=== PATIENT | female | born 1975 | race Caucasian/White ===

== ENCOUNTER 2022-06-18 10:33 | Emergency (ER) | payer OTHER, SELFPAY ==
[2022-06-18 10:46] VITALS: BP 155/108; PULSE 78; RESP 18; TEMP 36.6; O2SAT 99; BMI 44.3
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
--- NOTE | 2022-06-18 11:20 | CRLHL7_ITS ---
For Patients: As a result of the Century Cures Act, medical imaging exams and procedure reports are released immediately into your electronic medical record. You may view this report before your referring provider. If you have questions, please contact your health care provider. Indication: DIZZY, BALANCE PROBLEMS Technique: CT of the head without contrast. Coronal and sagittal reformats. Bone and soft tissue windows. Comparison: No prior studies available for comparison at this institution. Findings: No acute intracranial hemorrhage or extra-axial collection. No evidence of acute cortical infarction. No mass effect or midline shift. Normal cerebral volume. The ventricles are normal in size, shape and contour. There is normal pennington and white matter differentiation. The orbital contents are normal. No calvarial fractures. No lytic or sclerotic osseous lesions within the calvarium or skull base. Scalp and other imaged soft tissue structures are normal. Mastoid air cells are clear. Paranasal sinuses are well aerated. Partially empty morphology of the sella. Leftward deviation of the nasal septum. Impression: 1. No acute intracranial abnormality. 2. Partially empty configuration of the sella. This may represent a normal anatomic variant but can be seen in association with idiopathic intracranial hypertension in an appropriate clinical setting. Please note that all CT scans at this facility use dose modulation, iterative reconstruction, and/or weight-based dosing when appropriate to reduce radiation dose to as low as reasonably achievable. Dictated by Ghulam Bell MD @ 06/18/2022 1:04:31 PM (Electronically Signed)
--- OUTSIDE RECORDS SUMMARY | 2022-06-18 11:33 | XMS_ITS | Clinical Summary ---
:1975 Author [facility] [place] [address] Care Team Providers Name Role Phone FaustinoshericalebFinesseOriana Dahle Unavailable Unavailable Natacha Zaragoza MD Primary Care Provider Allergies Active Allergy Reactions Severity Noted Date Comments Amoxicillin Hives 12/09/2019 Medications Medication Sig Dispensed Refills Start Date End Date Status ciprofloxacin-dexAMETH Place 4 Drops into 1 Bottle 0 02/27/20 21 Active asone (CIPRODEX) otic both ears 2 times suspensionIndications: daily. Acute swimmer's ear of both sides tiZANidine (ZANAFLEX) Take 1 Tablet (4 10 Tablet 0 06/19/2021 Active 4 mg mg) by mouth every tabletIndications: 6 hours if needed Chronic midline low for Muscle Spasm. back pain with left-sided sciatica Active Problems Problem Noted Date Morbid obesity with BMI of 40.0-44.9, adult 02/26/2021 Hx of unilateral nephrectomy 01/04/2015 Renal mass 08/26/2014 Resolved Problems Problem Noted Date Resolved Date No significant past medical history 10/10/2011 02/0 10/2011 Acute sinusitis, unspecified 10/10/2011 08/26/2014 Encounters Date Type Specialty Care Team Description 06/18/2022 Travel 06/18/2022 Nurse Triage Natacha Zaragoza MD Dizzy from Last 3 Months Immunizations Name Administration Dates Next Due COVID-19 vaccine ([employer] 30mcg/0.3mL) PF, 1, 01/08/2021 MDV Tdap 01/25/2010, 10/10/2009 Family History Medical History Relation Name Comments Diabetes Maternal Grandmother Hypertension Maternal Grandmother Stroke Maternal Grandmother Good Health Mother Cancer-colon Other maternal great u ncle Cancer-breast No Family History Relation Name Status Comments Maternal Grandmother Mother Alive Other Social History Tobacco Use Types Packs/Day Years Used Date Never Smoker Smokeless Tobacco: Never Used Tobacco Cessation: Counseling Given: Yes Alcohol Use Standard Drinks/Week Comments Yes 0 (1 standard drink = 0.6 oz pure alcoho l) socially Alcohol Habits Answer Date Recorded How often do you have a drink containing alcohol? Monthly or less 12/09/2019 How many drinks containing alcohol do you have on a 1 or 2 12/09/2019 typical day when you are drinking? How often do you have six or more drinks on one Not asked occasion? Comment: socially 08/22/2014 Sex Assigned at Date Recorded Not on file COVID-19 Exposure Response Date Recorded In the last 10 days, have you been in contact with No / Unsu re 06/18/2022 9:42 AM CDT someone who was confirmed or suspected to have Coronavirus/COVID-19? Obstetrics History Para Term AB IAB SAB Ectopic Multiple Living Live Births 2 2 0 0 0 0 0 0 0 2 Date Outcome GA Total Labor/2nd/3rd Weight Sex Delivery Anes PTL Radha A 1 A5 Name Clin Labor Para Para Last Filed Vital Signs Vital Sign Reading Time Taken Comments Blood Pressure 144/89 06/19/2021 3:35 PM CDT Pulse 80 06/19/2021 3:35 PM CDT Temperature 36.7 ??C (98 ??F) 06/19/2021 3:35 PM CDT Respiratory Rate 18 12/22/2020 7:55 AM CDT Oxygen Saturation 100% 06/19/2021 3:35 PM CDT Inhaled Oxygen Concentration - - Weight 119.2 kg (262 lb 12.8 oz) 06/19/2021 3:35 PM CDT Height 157.5 cm (5' 2) 06/19/2021 3:35 PM CDT Body Mass Index 48.07 06/19/2021 3:35 PM CDT Plan of Treatment Upcoming Encounters Date Type Specialty Care Team Description 06/19/2022 Office Visit Kim Chan PA [address] [place], [place] [phone] (Wo rk) Health Maintenance Due Date Last Done Comments Hepatitis C screening for age 0602/23/1992 18-79 Colonoscopy through age 75 2019 Lipids for age 45-75 2019 Mammogram for age 45-75 2019 Tetanus booster 01/26/2020 01/25/2010, 10/10/2009, 10/10/2009 COVID-19 vaccine series (3 - 03/26/2021 01/29/2021, 021 Booster for Pfizer series) Depression screening for age 12+ 05/26/2021 05/26/2020, , 11/13/2016 Pap test for age 21-65 11/13/2021 11/13/2016, 11/13/2016, 06/21/2014, Additional history exists Influenza for age 9-49 05/09/2022 BMI (ht and wt on same day) for 06/19/2022 06/19/2021, 02/07, age 18+ 12/19/2020, Additional history exists Tdap Completed 01/25/2010, 10/10/2009 Results Not on filefrom Last 3 Months Insurance Payer Benefit Plan / Subscriber ID Effective Dates Phone Addre ss Type Group [employer] [id number] 2012-Present [address] [place] [address] Care Teams Transportation Officer Relationship Specialty Start Date End Date Natacha Zaragoza MD PCP - General Family Practice 06/13/17 [address] [place] [address] Oriana Mckeon 12/02/06
[2022-06-18] MEDS: 0.9 % SODIUM CHLORIDE 1000 ml 1,000 ML IV (11:42)
[2022-06-18] MEDS: diphenhydrAMINE 50 MG/ML inj 25 MG IVP (11:43)
[2022-06-18 11:55] LABS: Basophils Absolute Auto 0.05 K/uL (0.00-0.30); Basophils Percent Auto 0.7 % (0.0-3.0); Eosinophils Absolute Auto 0.11 K/uL (0.00-0.50); Eosinophils Percent Auto 1.5 % (0.0-7.0); Hematocrit 42.7 % (33.0-51.0); Hemoglobin* 13.7 gm/dL (12.0-16.0); Immature Granulocytes Abs Auto 0.01 K/uL (0.00-0.30); Lymphocytes Absolute Auto 1.89 K/uL (0.90-2.90); Lymphocytes Percent Auto 25.8 % (20-44); Mean Corpuscular HGB Conc 32 gm/dL (32-36); Mean Corpuscular Hemoglobin 27 pg (26-34); Mean Corpuscular Volume 83 fL (80-100); Monocytes Percent Auto 5.5 % (0.0-11.0); Neutrophils Absolute Auto 4.87 K/uL (1.7-7.0); Neutrophils Percent Auto 66.4 % (42.0-72.0); Platelet Count* 305 K/uL (140-440); Red Blood Count 5.16 m/uL (4.00-5.20); White Blood Count* 7.33 K/uL (4.50-11.00)
[2022-06-18 12:02] LABS: Slide Review Reflex No
[2022-06-18 12:06] LABS: Albumin* 4.8 g/dL (3.3-5.0); Chloride* 101 mmol/L (96-114); Potassium* 4.1 mmol/L (3.6-5.1); Sodium* 135 mmol/L (135-149)
[2022-06-18 12:08] LABS: Creatinine* 0.9 mg/dL (0.5-1.5); Est. Creatinine Clearance* 63.24; Estimated Glomerular Filt Rate 79 ml/min
[2022-06-18 12:09] LABS: Alanine Aminotransferase* 23 U/L (4-35); Alkaline Phosphatase* 81 U/L (40-150); Aspartate Amino Transferase* 21 U/L (12-35); Bilirubin Total* 0.4 mg/dL (0.1-1.5); Blood Urea Nitrogen* 13 mg/dL (5-24); Carbon Dioxide* 25 mmol/L (20-32); Glucose* 92 mg/dL (60-115)
[2022-06-18 12:10] LABS: Calcium* 9.6 mg/dL (8.4-10.6)
[2022-06-18 12:25] LABS: Appearance Urine Clear (Clear); Bilirubin Urine Negative (Negative); Blood Urine Negative (Negative); Color Urine Yellow (Yellow); Glucose Urine Negative (Negative); Ketones Urine Negative (Negative); Leukocyte Esterase Urine Negative (Negative); Nitrite Urine Negative (Negative); Protein Urine Negative (Negative); Specific Gravity Urine <= 1.005 (1.000-1.030); Urobilinogen Urine 0.2 (0.2-1.0); pH Urine 5.5 (5.0-8.5)
[2022-06-18 12:36] LABS: Bacteria Urine Moderate; Squamous Epithelial Cell Urine Few (None-Few)
[2022-06-18] MEDS: LORazepam 2 MG/ML inj 0.5 MG IVP (13:02)
[2022-06-18 13:07] VITALS: PULSE 70; RESP 18; O2SAT 98
[2022-06-18 14:30] VITALS: BP 123/55; PULSE 81; RESP 18; O2SAT 99
== END 2022-06-18 14:41 | disposition home or self-care (01) ==
PROVIDERS: Emergency Provider Family Medicine
DX: H81.10 Benign paroxysmal vertigo, unspecified ear (principal); R31.9 Hematuria, unspecified
CPT/HCPCS: 36415; 70450; 80053; 81001; 85025; 86140; 87086; 96374; 96375; 99284; 99285; J1200; J2060; J7030

== ENCOUNTER 2022-07-09 11:30 | Outpatient (RCR) | payer OTHER, SELFPAY | END 2022-09-26 08:36 | disposition home or self-care (01) | PROVIDERS: Visit Provider Student in an Organized Health Care Education/Training Program | DX: R42 Dizziness and giddiness (principal); Z51.89 Encounter for other specified aftercare | CPT/HCPCS: 95992; 97161 ==

== ENCOUNTER 2023-02-21 13:55 | Outpatient (CLI) | payer OTHER, SELFPAY | END 2023-02-21 13:56 | disposition home or self-care (01) | PROVIDERS: Visit Provider Nurse Practitioner Family | DX: R03.0 Elevated blood-pressure reading, without diagnosis of hypertension (principal); L08.9 Local infection of the skin and subcutaneous tissue, unspecified | CPT/HCPCS: 84443; 86617 ==

== ENCOUNTER 2023-04-30 15:49 | Emergency (ER) | payer OTHER, SELFPAY ==
[2023-04-30 15:52] VITALS: BP 164/83; PULSE 100; RESP 18; TEMP 36.4; O2SAT 100; BMI 47.8
--- NOTE | 2023-04-30 16:07 | ED_ITS ---
HPI - General Adult General Time Seen by Provider: 16:07 Date Seen: 04/30/23 Chief complaint: Urogenital Problems, Female Stated complaint: Possible UTI/kidney infection Time Seen by Provider: 04/30/23 15:50 Source: patient and RN notes reviewed Mode of arrival: ambulatory Limitations: no limitations History of Present Illness HPI narrative: Patient is a 48-year-old female coming in with lower pelvic pain and pain into her left flank. She has no history of kidney stone disease. She has had a right nephrectomy for benign tumor reportedly. She started not feeling well on Friday, just achy, no specific symptoms. Yesterday she did have a little mucousy bloody vaginal discharge which did go away. She has had a remote history of endometrial ablation and no subsequent periods. She has not been seen for any preventative cares since [facility]. She has had no fevers. The last couple days she has had increased stools that have been soft but not bloody or diarrheal. She felt her urine was cloudy this morning almost a tingly neurologic type sensation when she urinated. She is went to couple times since then without any abnormality. She is wondering if possibly she could have a kidney infection or bladder infection. She has had some nausea but no vomiting. She has a lot of lower abdominal pressure and discomfort and it does radiate up into the left flank. Related Data Previous Rx's Medication Instructions Recorded cephalexin 500 mg tablet 500 mg PO TID #21 tabs 04/30/23 Allergies Allergy/AdvReac Type Severity Reaction Status Date / Time amoxicillin Allergy Mild Rash Verified 04/30/23 18:25 Review of Systems Status of ROS: Reports: 6 or more systems reviewed and unremarkable except as noted in History and below [facility] History Skin infection ?L08.9 - Local infection of the skin and subcutaneous tissue, unspecified (ICD-10) Elevated blood pressure reading in office without diagnosis of hypertension ?R03.0 - Elevated blood-pressure reading, without diagnosis of hypertension (ICD-10) Ankle swelling ?M25.473 - Effusion, unspecified ankle (ICD-10) No significant past medical history Surgical History H/O adenoidectomy ?Z90.89 - Acquired absence of other organs (ICD-10) History of appendectomy ?Z90.49 - Acquired absence of other specified parts of digestive tract (ICD- 10) History of tonsillectomy ?Z90.89 - Acquired absence of other organs (ICD-10) Hx of kidney removal ?Z90.5 - Acquired absence of kidney (ICD-10) Social History Smoking Status: Never smoker How often do you have a drink containing alcohol: 2-4 times a month AUDIT-C Alcohol total score: 2 Non-prescribed substance use: denies use Exam Const: Vital Signs, click to edit/add: Vital Signs - 24 hr 04/30/23 15:52 04/30/23 18:29 Temperature 97.6 F 97.6 F Pulse Rate [Pulse Oximeter] 100 97 Respiratory Rate 18 16 Blood Pressure [Ri ght Upper Arm] 164/83 H 151/90 H Pulse Oximetry 100 98 Oxygen Delivery Me thod Room Air Room Air 48-year-old female is alert interactive no apparent distress. Sclera clear, conjugate gaze. Face atraumatic. Lungs are clear with good air entry, no wheezing or crackles. CV regular rate and rhythm no murmur. Abdomen is obese but soft, no significant abdominal tenderness on my examination. Body habitus precludes any sense of any organomegaly or masses. Certainly there is no rebound or guarding. Documenting provider has reviewed patient's vital signs: yes Course Course Hospital Course: Patient was unable to leave a urinalysis on arrival. Will place an IV, get appropriate lab work, give her some normal saline. Hopefully should be able to provide a urinalysis shortly. Will obtain pelvic ultrasound for the slight postmenopausal bleeding that happen. She understands that we may end up needing to proceed with CT imaging of her abdomen and would do so if necessary or recommended. She is sure that the bleeding and mucousy discharge was the vaginal, was just yesterday, none today. Will see what the pelvic ultrasound shows. Did review that we certainly do not want to miss any evidence of early uterine cancer. There certainly could be urinary issues such as UTI with ascending pyelonephritis, possible kidney stones. Bowel pathology is a possibility as well. Again, will consider CT imaging based on labs. She declines any need for any nausea or pain management at this time. Reevaluation(s) Time of Reevaluation #1: 18:11 Reevaluation #1: Reviewed elevated WBC, UA certainly supporting possible UTI with possible ascending symptoms given left flank pain. Will consider IV Rocephin after CT abdomen/pelvis done. However, with the increased soft stooling last couple of days, do think we also need to consider etiologies such as diverticulitis. Patient has never had colonoscopy. She agrees to proceed with CT imaging. Awaiting reading of pelvic US. Time of Reevaluation #2: 17:57 Reevaluation #2: Reviewed ultrasound report specifically with patient, brought the copy in. Also reviewed the CT report. Patient believes that they did find liver lesion her cyst when they were taking out her right kidney. Thus, she needs to just compare that prior records with the CT report. It is likely that this is benign but she should be aware and follow up to make sure nothing further should be done. Reassured her that her liver functions are normal tonight. IA do think that the bladder wall was maybe somewhat increased in thickness, symptoms seem to be concerning for complicated UTI with possibly ascending infection. We are going to complete the 1 g IV Rocephin and have her start on oral antibiotics tomorrow. Vital Signs Vital signs: Initial Vital Signs Temperature 97.6 F 04/30/23 15:52 Temperature Source Temporal Artery Scan 04/30/23 15:52 Pulse Rate 100 04/30/23 15:52 Respiratory Rate 18 04/30/23 15:52 Blood Pressure 164/83 H 04/30/23 15:52 Blood Pressure Mean 110 H 04/30/23 15:52 Blood Pressure Position Sitting 04/30/23 15:52 Pulse Oximetry 100 04/30/23 15:52 Oxygen Delivery Method Room Air 04/30/23 15:52 Vital Signs Temperature 97.6 F 04/30/23 15:52 Pulse Rate 100 04/30/23 15:52 Respiratory Rate 18 04/30/23 15:52 Blood Pressure 164/83 H 04/30/23 15:52 Pulse Oximetry 100 04/30/23 15:52 Oxygen Delivery Method Room Air 04/30/23 15:52 Temperature 97.6 F 04/30/23 18:29 Pulse Rate 97 04/30/23 18:29 Respiratory Rate 16 04/30/23 18:29 Blood Pressure 151/90 H 04/30/23 18:29 Pulse Oximetry 98 04/30/23 18:29 Oxygen Delivery Method Room Air 04/30/23 18:29 Medical Decision Making Lab Data Lab results reviewed: Yes I reviewed the patient's lab results Labs: Lab Results 04/30/23 04/30/23 Range/Units 16:25 17:00 WBC 12.20 H (4.50-11.00) K/uL RBC 4.78 (4.00-5.20) m/uL Hgb 12.8 (12.0-16.0) gm/dL Hct 39.9 (33.0-51.0) % MCV 84 (80-100) fL MCH 27 (26-34) pg MCHC 32 (32-36) gm/dL RDW Coeff of Simona 13.4 (11.5-15.5) % Plt Count 315 (140-440) K/uL Neut % (Auto) 75.2 H (42.0-72.0) % Lymph % (Auto) 18.5 L (20-44) % J[place] % (Auto) 4.6 (0.0-11.0) % Eos % (Auto) 1.0 (0.0-7.0) % Baso % (Auto) 0.5 (0.0-3.0) % Neut # (Auto) 9.20 H (1.7-7.0) K/uL Lymph # (Auto) 2.30 (0.90-2.90) K/uL Jerauld # (Auto) 0.60 (0.00-0.90) K/UL Eos # (Auto) 0.10 (0.00-0.50) K/uL Baso # (Auto) 0.10 (0.00-0.30) K/uL Abs Immat Gran (auto) 0.00 (0.00-0.30) K/uL Imm/Tot Granulo (auto) 0.2 % Sodium 135 (135-149) mmol/L Potassium 3.6 (3.6-5.1) mmol/L Chloride 102 (96-114) mmol/L Carbon Dioxide 26 (20-32) mmol/L Anion Gap 7 (7-15) mEq/L BUN 15 (5-24) mg/dL Creatinine 1.0 (0.5-1.5) mg/dL Estimated Creat Clear 56.29 Estimated GFR 69 ml/min Glucose 122 H (60-115) mg/dL Lactate 0.9 (0.5-1.9) mmol/L Total Bilirubin 0.4 (0.1-1.5) mg/dL AST 22 (12-35) U/L ALT 24 (4-35) U/L Alkaline Phosphatase 70 (40-150) U/L C-Reactive Protein 3.2 H (0.5-1.0) mg/dL Total Protein 7.6 (6.0-8.3) g/dL Albumin 4.5 (3.3-5.0) g/dL Urine Color Yellow (Yellow) Urine Appearance Slightly Cloudy A (Clear) Urine pH 6.5 (5.0-8.5) Ur Specific [place] 1.010 (1.000-1.030) Urine Protein Negative (Negative) Urine Glucose (UA) Negative (Negative) Urine Ketones Negative (Negative) Urine Blood 2+ A (Negative) Urine Nitrite Negative (Negative) Urine Bilirubin Negative (Negative) Urine Urobilinogen 0.2 (0.2-1.0) Ur Leukocyte Esterase 1+ A (Negative) Urine RBC 2-5 A (0-2) Urine WBC 10-25 A (0-5) Ur Squamous Epith Cells Few (None-Few) Urine Bacteria Few A (None) Urine HCG, Qual Negative (Negative) Imaging Data US pelvis: Attestation: I have reviewed the pertinent imaging results. Radiologist's impression: Patient: LOUISE WILLETTPALMDALE Facility:?[facility] Patient ID:?[id number] Site Patient ID:?[id number]. Site :?[id number] Study:?US Pelvis TRANSABDOMINAL AND TRANSVAGINAL-04/30/2023 5:12:49 PM Ordering Physician:Victorina Jewell Final Report: INDICATION: Postmenopausal bleeding. Ablation in her 30s. COMPARISON: None available. FINDINGS: Transvaginal and transabdominal ultrasound examination of the female pelvis was performed. Initial examination is performed with transabdominal technique and t ransvaginal technique is used for better visualization of the pelvic structures. The uterus is anteverted. There is a fibroid in the anterior fundus measuring 3.3 x 3.0 x 3.4 centimeters. The uterus is mildly enlarged with heterogeneous hypoechoic echogenicity, consistent with diffuse fibroid degeneration. It measures 12.3 x 5.0 x 6.0 centimeters. The endometrial lining is mildly increased thickness at 8 mm. While this may be normal for a menstruating patient, this is abnormal for a postmenopausal patient. Incidental note is made of nabothian cysts in the cervix. The right ovary cannot be identified on either transabdominal or transvaginal examination. There is a 2 centimeter simple cyst in the left ovary consistent with a follicular cyst. The left ovary is normal in size, measuring 3.4 x 2.1 x 2.5 cm. There is normal color and pulse Doppler flow. There is no sign of free fluid in the pelvis. IMPRESSION: Mildly thickened endometrial lining with no sign of mass. This is nonspecific and could represent endometrial hypertrophy. Fibroid in the anterior fundus measuring up to 3.4 centimeters in diameter with mild enlargement of the uterus with heterogeneous echogenicity from diffuse fibroid degeneration. Dictated by Angel Tello MD @ 04/30/2023 6:20:59 PM (Electronic Signature) CT scan - abdomen: Attestation: I have reviewed the pertinent imaging results. My impression: Believe bladder wall might have a thickened look to it to my preliminary review but see no inflammatory changes about the remaining left kidney. Await Radiology over-read. Radiologist's impression: Patient: [facility] Facility:?[facility] Patient ID:?[id number] Site Patient ID:?[id number]. Site :?[id number] Study:?CT Abdomen/Pelvis w/ 115cc [id number]/23/2023 6:48:41 PM Ordering Physician:?Na Jewell Final Report: INDICATION: Left-sided abdominal pain. Pelvic pain. TECHNIQUE: Contrast-enhanced CT of the abdomen and pelvis. 115 cc nonionic Isovue-370 administered. COMPARISON: Correlation is made with a pelvic ultrasound from the same date. FINDINGS: The included lung bases are clear. Within the medial aspect of the right hepatic lobe image 31 series 2 is a 2.5 x 1.7 cm low-attenuation slightly lobulated lesion. This does not appear to reflect a cyst but could reflect a cavernous hemangioma. It does remain indeterminate. Consider ultrasound or MRI for further characterization. Small esophageal hiatal hernia. The spleen, pancreas, and adrenal glands are unremarkable. Largely contracted gallbladder. Surgically absent right kidney. Both adrenal glands remain and are normal. Normal-appearing left kidney. Normal caliber abdominal aorta and iliac arteries. Normal inferior vena cava. No bowel obstruction or ileus. The urinary bladder is unremarkable. 2.4 cm cyst left ovary image 106 series 2. Uterine fibroid anterior superior uterus. Normal urinary bladder. Few tiny calcified pelvic phleboliths. No ascites or lymphadenopathy. No inguinal hernias. The included skeleton is negative for fractures. There is a subtle area of sclerosis within the medial left superior pubic ramus likely a bone island, image 137 series 2, image 61 series 4. IMPRESSION: 1. The absent right kidney. The adrenal glands remain. Normal left kidney. 2. Slightly lobulated low-attenuation lesion inferomedial right hepatic lobe nonspecific. Consider ultrasound or MRI for further characterization. 3. Anterior upper uterine fibroid. Left ovarian cyst. Please note that all CT scans at this facility use dose modulation, iterative reconstruction, and/or weight-based dosing when appropriate to reduce radiation dose to as low as reasonably achievable. Dictated by Luiz Katz MD @ 04/30/2023 7:37:39 PM (Electronic Signature) Critical Care Time Critical Care Time Critical Care Time: No Discharge Plan Discharge Clinical Impression: Complicated urinary tract infection, Abnormal vaginal bleeding Patient Disposition: Home, Self-Care Condition: Stable Instructions: Urinary Tract Infection in Women (ED), Kidney Infection (ED) Additional Instructions: Next dose of antibiotics due tomorrow morning, take as prescribed. We will contact you if there needs to be a change in antibiotics based on urine culture. Otherwise drink plenty of fluids. Can use Tylenol per bottle directions primarily for pain control. Could use small amount of ibuprofen if needed but would be careful of NSAIDs given you have a solitary kidney. Bring CT report to follow up with primary care provider. Need to get scheduled for follow-up with primary care provider. Do recommend that you have an FSH level checked to see where you are as far as menopause. Need to have endometrial biopsy considered, need to talk to primary care provider or affirmative action officer about this further. Activity Level: Activity as Tolerated Prescriptions: New cephalexin 500 mg tablet 500 mg PO TID Qty: 21 0RF Follow Up/Referrals: Provider,Not a Local [Primary Care Provider] - Stand Alone Forms: [employer] Info Instructions
--- NOTE | 2023-04-30 16:13 | CRLHL7_ITS ---
For Patients: As a result of the Century Cures Act, medical imaging exams and procedure reports are released immediately into your electronic medical record. You may view this report before your referring provider. If you have questions, please contact your health care provider. INDICATION: Postmenopausal bleeding. Ablation in her 30s. COMPARISON: None available. FINDINGS: Transvaginal and transabdominal ultrasound examination of the female pelvis was performed. Initial examination is performed with transabdominal technique and transvaginal technique is used for better visualization of the pelvic structures. The uterus is anteverted. There is a fibroid in the anterior fundus measuring 3.3 x 3.0 x 3.4 centimeters. The uterus is mildly enlarged with heterogeneous hypoechoic echogenicity, consistent with diffuse fibroid degeneration. It measures 12.3 x 5.0 x 6.0 centimeters. The endometrial lining is mildly increased thickness at 8 mm. While this may be normal for a menstruating patient, this is abnormal for a postmenopausal patient. Incidental note is made of nabothian cysts in the cervix. The right ovary cannot be identified on either transabdominal or transvaginal examination. There is a 2 centimeter simple cyst in the left ovary consistent with a follicular cyst. The left ovary is normal in size, measuring 3.4 x 2.1 x 2.5 cm. There is normal color and pulse Doppler flow. There is no sign of free fluid in the pelvis. IMPRESSION: Mildly thickened endometrial lining with no sign of mass. This is nonspecific and could represent endometrial hypertrophy. Fibroid in the anterior fundus measuring up to 3.4 centimeters in diameter with mild enlargement of the uterus with heterogeneous echogenicity from diffuse fibroid degeneration. Dictated by Angel Tello MD @ 04/30/2023 6:20:59 PM (Electronically Signed)
[2023-04-30 16:33] LABS: Lactate* 0.9 mmol/L (0.5-1.9)
[2023-04-30 16:34] LABS: Basophils Percent Auto 0.5 % (0.0-3.0); Hematocrit 39.9 % (33.0-51.0); Hemoglobin* 12.8 gm/dL (12.0-16.0); Immature Granulocytes Pct Auto 0.2 %; Lymphocytes Percent Auto 18.5 % (20-44); Mean Corpuscular HGB Conc 32 gm/dL (32-36); Mean Corpuscular Hemoglobin 27 pg (26-34); Mean Corpuscular Volume 84 fL (80-100); Monocytes Percent Auto 4.6 % (0.0-11.0); Neutrophils Percent Auto 75.2 % (42.0-72.0); Platelet Count* 315 K/uL (140-440); RDW Coefficient of Variation % 13.4 % (11.5-15.5); Red Blood Count 4.78 m/uL (4.00-5.20)
[2023-04-30 16:47] LABS: Albumin* 4.5 g/dL (3.3-5.0); Chloride* 102 mmol/L (96-114)
[2023-04-30 16:48] LABS: Potassium* 3.6 mmol/L (3.6-5.1); Sodium* 135 mmol/L (135-149)
[2023-04-30 16:50] LABS: Est. Creatinine Clearance* 56.29; Estimated Glomerular Filt Rate 69 ml/min
[2023-04-30 16:51] LABS: Alanine Aminotransferase* 24 U/L (4-35); Alkaline Phosphatase* 70 U/L (40-150); Anion Gap 7 mEq/L (7-15); Aspartate Amino Transferase* 22 U/L (12-35); Bilirubin Total* 0.4 mg/dL (0.1-1.5); Blood Urea Nitrogen* 15 mg/dL (5-24); Carbon Dioxide* 26 mmol/L (20-32); Glucose* 122 mg/dL (60-115); Total Protein* 7.6 g/dL (6.0-8.3)
[2023-04-30 16:54] LABS: C Reactive Protein* 3.2 mg/dL (0.5-1.0)
[2023-04-30 17:02] LABS: Slide Review Reflex No
[2023-04-30 17:09] LABS: Appearance Urine Slightly Cloudy (Clear); Bilirubin Urine Negative (Negative); Blood Urine 2+ (Negative); Color Urine Yellow (Yellow); Glucose Urine Negative (Negative); Ketones Urine Negative (Negative); Leukocyte Esterase Urine 1+ (Negative); Nitrite Urine Negative (Negative); Protein Urine Negative (Negative); Urobilinogen Urine 0.2 (0.2-1.0); pH Urine 6.5 (5.0-8.5)
[2023-04-30 17:10] LABS: Ur HCG Qualitative* Negative (Negative)
[2023-04-30 17:27] LABS: Bacteria Urine Few; Squamous Epithelial Cell Urine Few (None-Few)
[2023-04-30] MEDS: 0.9 % SODIUM CHLORIDE 1000 ml 1,000 ML IV (17:44)
--- NOTE | 2023-04-30 18:19 | CRLHL7_ITS ---
For Patients: As a result of the Century Cures Act, medical imaging exams and procedure reports are released immediately into your electronic medical record. You may view this report before your referring provider. If you have questions, please contact your health care provider. INDICATION: Left-sided abdominal pain. Pelvic pain. TECHNIQUE: Contrast-enhanced CT of the abdomen and pelvis. 115 cc nonionic Isovue-370 administered. COMPARISON: Correlation is made with a pelvic ultrasound from the same date. FINDINGS: The included lung bases are clear. Within the medial aspect of the right hepatic lobe image 31 series 2 is a 2.5 x 1.7 cm low-attenuation slightly lobulated lesion. This does not appear to reflect a cyst but could reflect a cavernous hemangioma. It does remain indeterminate. Consider ultrasound or MRI for further characterization. Small esophageal hiatal hernia. The spleen, pancreas, and adrenal glands are unremarkable. Largely contracted gallbladder. Surgically absent right kidney. Both adrenal glands remain and are normal. Normal-appearing left kidney. Normal caliber abdominal aorta and iliac arteries. Normal inferior vena cava. No bowel obstruction or ileus. The urinary bladder is unremarkable. 2.4 cm cyst left ovary image 106 series 2. Uterine fibroid anterior superior uterus. Normal urinary bladder. Few tiny calcified pelvic phleboliths. No ascites or lymphadenopathy. No inguinal hernias. The included skeleton is negative for fractures. There is a subtle area of sclerosis within the medial left superior pubic ramus likely a bone island, image 137 series 2, image 61 series 4. IMPRESSION: 1. The absent right kidney. The adrenal glands remain. Normal left kidney. 2. Slightly lobulated low-attenuation lesion inferomedial right hepatic lobe nonspecific. Consider ultrasound or MRI for further characterization. 3. Anterior upper uterine fibroid. Left ovarian cyst. Please note that all CT scans at this facility use dose modulation, iterative reconstruction, and/or weight-based dosing when appropriate to reduce radiation dose to as low as reasonably achievable. Dictated by Luiz Katz MD @ 04/30/2023 7:37:39 PM (Electronically Signed)
[2023-04-30] MEDS: KETOROLAC 15 MG/ML inj IVP (18:21)
[2023-04-30 18:29] VITALS: BP 151/90; PULSE 97; RESP 16; TEMP 36.4; O2SAT 98
[2023-04-30] MEDS: cefTRIAXone 1 GM in 0.9 % SODIUM CHLORIDE Mini-bag 100 ML IVPB (19:44)
[2023-04-30 21:07] VITALS: BP 138/72; PULSE 85; RESP 20; TEMP 36.8; O2SAT 97
[2023-05-02 19:36] LABS: Calcium* 9.7 mg/dL (8.4-10.6)
== END 2023-04-30 21:08 | disposition home or self-care (01) ==
PROVIDERS: Emergency Provider Family Medicine
DX: N93.9 Abnormal uterine and vaginal bleeding, unspecified (principal); N39.0 Urinary tract infection, site not specified
CPT/HCPCS: 36415; 74177; 76830; 76856; 80053; 81001; 81025; 83605; 85025; 86140; 87086; 87186; 93976; 96365; 96375; 99284; 99285; J0696; J1885; J7030; Q9967

== ENCOUNTER 2023-05-06 08:26 | Outpatient (CLI) | payer OTHER, SELFPAY | END 2023-05-06 08:27 | disposition home or self-care (01) | PROVIDERS: PCP Nurse Practitioner Family; Visit Provider Nurse Practitioner Family | DX: N93.9 Abnormal uterine and vaginal bleeding, unspecified (principal); E66.01 Morbid (severe) obesity due to excess calories; R03.0 Elevated blood-pressure reading, without diagnosis of hypertension | CPT/HCPCS: 83001 ==

== ENCOUNTER 2023-05-16 08:00 | Outpatient (CLI) | payer OTHER, SELFPAY ==
--- NOTE | 2023-05-16 08:49 | W.ANESCHARGE ---
Anesthesia Charges Start Date/Time Anesthesia Start Date: 05/16/23 Anesthesia Start Time: 08:35 Stop Date/Time Anesthesia Stop Date: 05/16/23 Anesthesia Stop Time: 08:54
--- NOTE | 2023-05-16 08:55 | W.ANESCHARGE ---
Anesthesia Charges Start Date/Time Anesthesia Start Date: 05/16/23 Anesthesia Start Time: 08:35 Stop Date/Time Anesthesia Stop Date: 05/16/23 Anesthesia Stop Time: 08:54
== END 2023-05-16 08:01 | disposition home or self-care (01) ==
LOC: OP CLINIC 08:00
PROVIDERS: PCP Nurse Practitioner Family; Visit Provider Internal Medicine
DX: Z12.11 Encounter for screening for malignant neoplasm of colon (principal); Z80.0 Family history of malignant neoplasm of digestive organs
CPT/HCPCS: 00812; 45378; J2704

== ENCOUNTER 2023-06-13 19:47 | Outpatient (CLI) | payer OTHER, SELFPAY ==
--- NOTE | 2023-06-24 12:19 | W.PM.SLEEP ---
Sleep Study Details Details Interpreting Provider: Katie Date of Sleep Study: 06/13/23 Sleep Study Details: STUDY TYPE:? Home unattended ? BMI:? 48.9 ORDERING PROVIDER:Sha Sadler INDICATION:? Concerns about sleep apnea ? SLEEP SUMMARY:? 411.5 minutes monitor RESPIRATORY SUMMARY:? AHI 80.3 Low oxygen 61 51.6% of study oxygen below 90% PERIODIC LIMB MOVEMENTS OF SLEEP:? Not recorded during home study CARDIAC:? Range 62-105 beats per minute, mean 79.7 IMPRESSION:? Severe obstructive sleep apnea with significant hypo oxygenation RECOMMENDATION: In-lab titration study is favored as patient may well required advancement to bilevel pressure. If AutoSet CPAP is chosen then would recommend overnight oximetry be performed once effective therapy is established.
== END 2023-06-13 19:48 | disposition home or self-care (01) ==
LOC: SLEEP 19:47
PROVIDERS: PCP Nurse Practitioner Family; Visit Provider Nurse Practitioner Family
DX: G47.33 Obstructive sleep apnea (adult) (pediatric) (principal)
CPT/HCPCS: 95806

== ENCOUNTER 2023-06-19 11:20 | Outpatient (REF) | payer OTHER, SELFPAY ==
[2023-06-19 11:54] LABS: Basophils Absolute Auto 0.05 K/uL (0.00-0.30); Basophils Percent Auto 0.6 % (0.0-3.0); Eosinophils Absolute Auto 0.14 K/uL (0.00-0.50); Eosinophils Percent Auto 1.6 % (0.0-7.0); Hematocrit 39.2 % (33.0-51.0); Hemoglobin* 12.5 gm/dL (12.0-16.0); Immature Granulocytes Abs Auto 0.01 K/uL (0.00-0.30); Immature Granulocytes Pct Auto 0.1 %; Lymphocytes Absolute Auto 2.33 K/uL (0.90-2.90); Lymphocytes Percent Auto 26.5 % (20-44); Mean Corpuscular HGB Conc 32 gm/dL (32-36); Mean Corpuscular Hemoglobin 27 pg (26-34); Mean Corpuscular Volume 84 fL (80-100); Monocytes Percent Auto 5.3 % (0.0-11.0); Neutrophils Percent Auto 65.9 % (42.0-72.0); Platelet Count* 314 K/uL (140-440); Red Blood Count 4.66 m/uL (4.00-5.20)
[2023-06-19 11:58] LABS: Slide Review Reflex No
[2023-06-19 12:02] LABS: Appearance Urine Clear (Clear); Bilirubin Urine Negative (Negative); Blood Urine Negative (Negative); Color Urine Yellow (Yellow); Glucose Urine Negative (Negative); Ketones Urine Negative (Negative); Leukocyte Esterase Urine Negative (Negative); Nitrite Urine Negative (Negative); Protein Urine Negative (Negative); Urobilinogen Urine 0.2 (0.2-1.0); pH Urine 6.5 (5.0-8.5)
[2023-06-19 12:05] LABS: Chloride* 101 mmol/L (96-114)
[2023-06-19 12:06] LABS: Albumin* 4.2 g/dL (3.3-5.0); Sodium* 137 mmol/L (135-149)
[2023-06-19 12:07] LABS: Potassium* 4.7 mmol/L (3.6-5.1)
[2023-06-19 12:09] LABS: Anion Gap 11 mEq/L (7-15); Bilirubin Total* 0.5 mg/dL (0.1-1.5); Carbon Dioxide* 25 mmol/L (20-32); Cholesterol* 189 mg/dL (90-199); Creatinine* 0.8 mg/dL (0.5-1.5); Estimated Glomerular Filt Rate 90 ml/min
[2023-06-19 12:10] LABS: Alanine Aminotransferase* 26 U/L (4-35); Alkaline Phosphatase* 72 U/L (40-150); Aspartate Amino Transferase* 23 U/L (12-35); Blood Urea Nitrogen* 11 mg/dL (5-24); Calcium* 9.3 mg/dL (8.4-10.6); Glucose* 90 mg/dL (60-115); Triglycerides* 82 mg/dL (40-149); Uric Acid* 3.8 mg/dL (2.2-8.4)
[2023-06-19 12:11] LABS: HDL Cholesterol* 64 mg/dL (>=50); LDL Cholesterol Calculated 109 mg/dL (<100)
[2023-06-19 12:12] LABS: C Reactive Protein* 1.4 mg/dL (0.5-1.0)
[2023-06-19 12:16] LABS: RBC Urine 0-2 (0-2); Squamous Epithelial Cell Urine Many (None-Few); WBC Urine 0-2 (0-5)
[2023-06-19 12:25] LABS: Creatinine Urine 34.1 mg/dL
[2023-06-19 12:26] LABS: Vitamin D 25 Hydroxy* 37 ng/mL (30-80)
[2023-06-19 12:30] LABS: Microalbumin Creatinine Ratio 20 mg/g (0-30); Microalbumin Urine < 1 mg/dL
[2023-06-19 12:59] LABS: Vitamin B12* 488 pg/mL (243-894)
[2023-06-20 19:48] LABS: Adrenocorticotropic Hormone 28.9 pg/mL (7.2-63.3)
[2023-06-20 22:24] LABS: C-Peptide, Serum or Plasma 2.6 ng/mL (0.5-3.3)
[2023-06-20 22:26] LABS: Prolactin 8.8 ng/mL (2.8-29.2)
[2023-06-21 01:57] LABS: Cortisol, Serum 6.2 ug/dL; Follicle Stimulating Hormone 8.3 IU/L; Luteinizing Hormone, Serum 8.2 IU/L
[2023-06-21 02:20] LABS: Total T3 132 ng/dL (80-200)
[2023-06-22 14:14] LABS: Testosterone, Low Level 15 ng/dL (9-55)
[2023-06-24 16:47] LABS: Estradiol by TMS 203.1 pg/mL
== END 2023-06-19 11:21 | disposition home or self-care (01) ==
LOC: NPINS 11:20
PROVIDERS: PCP Nurse Practitioner Family; Visit Provider Registered Nurse
DX: R03.0 Elevated blood-pressure reading, without diagnosis of hypertension (principal); N92.6 Irregular menstruation, unspecified; E55.9 Vitamin D deficiency, unspecified; R53.83 Other fatigue; E03.9 Hypothyroidism, unspecified; R73.01 Impaired fasting glucose; E78.1 Pure hyperglyceridemia
CPT/HCPCS: 80053; 80061; 81001; 82024; 82043; 82306; 82533; 82570; 82607; 82670; 83001; 83002; 83036; 84146; 84403; 84439; 84443; 84480; 84550; 84681; 85025; 86140

== ENCOUNTER 2023-07-01 07:03 | Day surgery (SDC) | payer OTHER, SELFPAY ==
[2023-07-01] MEDS: LACTATED RINGERS 1000 ML 1,000 ML 100 ML IV (07:05)
[2023-07-01 07:23] VITALS: BMI 49.3
[2023-07-01 07:35] LABS: Ur HCG Qualitative* Negative (Negative)
[2023-07-01 07:43] VITALS: BP 169/84; PULSE 87; RESP 16; TEMP 36.6; O2SAT 99
[2023-07-01] MEDS: SODIUM CHLORIDE 0.9 % (FLUSH) 10 ML SYRINGE IVF (07:46)
[2023-07-01 07:56] LABS: Hemoglobin* 13.4 gm/dL (12.0-16.0)
[2023-07-01 08:18] LABS: Creatinine* 0.9 mg/dL (0.5-1.5); Est. Creatinine Clearance* 62.55; Estimated Glomerular Filt Rate 78 ml/min
[2023-07-01] MEDS: BUPIVACAINE 0.5 % 10 ML VIAL INJECTION (08:57)
[2023-07-01 09:21] VITALS: BP 137/79; PULSE 75; RESP 16; TEMP 36.3; O2SAT 95
[2023-07-01 09:30] VITALS: BP 128/91; PULSE 67; RESP 16; O2SAT 95
--- NOTE | 2023-07-01 09:31 | W.ANESCHARGE ---
Anesthesia Charges Start Date/Time Anesthesia Start Date: 07/01/23 Anesthesia Start Time: 08:29 Stop Date/Time Anesthesia Stop Date: 07/01/23 Anesthesia Stop Time: 09:25
--- NOTE | 2023-07-01 09:33 | W.PM.GYNPROC ---
Procedure Note Time Seen by Provider: 09:30 Date of procedure: 07/01/23 Pre-op diagnosis: Vaginal bleeding s/p endometrial ablation, cervical cancer screening Post-op diagnosis: same Procedure: Pap test, hysteroscopy, dilation and curettage Complications: None Surgeon: Barbara Sauceda MD Estimated blood loss (mL): 5 IV fluids (mL): 700 Pathology: specimen obtained, sent to pathology Condition: stable Disposition: same day Findings: Medium sized uterus, anteverted, small descensus No significant cervical stenosis Uterine sounding length of 6 cm Endometrial cavity assessment limited by significant postablation scar tissue noted, overall inactive appearance Procedure Description: Procedure in detail: Patient was taken to the operating room with IV running. She was positioned in dorsal lithotomy position with her legs fully supported in Yellofin stirrups. Monitored anesthesia care was administered. Speculum exam performed, vaginal tissue is pink and well rugated. Cervix appears normal. Pap test obtained. She was then prepped and draped in the usual sterile fashion. Exam under anesthesia was performed for the above-noted findings. Bimanaul exam performed first, in part to assess feasibility of TVH (if required in the future), which I do suspect would be challenging given uterine size, mobility and body habitus. Speculum was inserted. Cervix visualized and grasped along the anterior lip with a single-tooth tenaculum. Paracervical block performed with 0.5% Marcaine. Even with gentle traction applied to tenaculum, the cervix is still 5cm from vaginal introitus. Uterine sound was passed without difficulty, to sounding length of 6cm at which time resistance was noted. Cervix was serially dilated to accommodate the TRUCLEAR hysteroscope. This was assembled with saline inflow and outflow in place. The line was flushed of bubbles. The hysteroscope was advanced through the cervix into the endometrial cavity, again to a sounding length of 6cm. The cavity appeared inactive in general with no apparent focal pathology, one small area of possible increased vascularity was noted. The cavity itself appeared to be narrowed secondary to adhesive disease from prior ablation. The tissue morcellator was then inserted through the operating channel. Window lock was performed. Under direct visualization, the endometrial cavity was circumferentially curetted with the tissue morcellator. No bleeding was appreciated, consistent with likely scar tissue. As gentle circumferential sampling was performed, small crypts of further inactive appearing endometrium could be further accessed. Still, I am highly suspicious that we were unable to visualize the cavity to the uterine fundus nor lateral sidewalls given sounding length of 6cm and narrow width relative to pre-op TVUS where uterus measured 12.3 x 5.0 x 6.0cm. Sampling was performed with caution given distorted anatomy s/p ablation, no apparent procedural complications. The hysteroscope and morcellator were then removed from the uterus. Tenaculum was removed from the anterior lip of cervix. Hemostasis was noted. Patient tolerated procedure well. She was taken to recovery area in stable condition. Specimen sent for pathologic evaluation, debrief completed. EBL 5cc. Fluid deficit 345cc (likely over estimate given fluid spillage noted on floor), IVF 700cc.
--- NOTE | 2023-07-01 09:33 | PM.GYNHPPRM ---
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 She notes no interval change in her health history, aside from right conjunctival hematoma since our last visit. She notes she is being seen by an ophthalmology provider for this. We reviewed the planned procedure again in detail - including pap test for cervical cancer screening, then hysteroscopy and dilation/curettage to obtain tissue to exclude endometrial hyperplasia, atypia and carcinoma as the etiology behind her vaginal bleeding. We reviewed the risk of inability to access the cavity and/or perforation if there is significant post-ablation scarring noted. All questions answered. PFS PFS Medical History (Updated 06/25/23 @ 10:05 by Emily Leigh MD) Skin infection ?L08.9 - Local infection of the skin and subcutaneous tissue, unspecified (ICD-10) Elevated blood pressure reading in office without diagnosis of hypertension ?R03.0 - Elevated blood-pressure reading, without diagnosis of hypertension (ICD-10) Ankle swelling ?M25.473 - Effusion, unspecified ankle (ICD-10) No significant past medical history Surgical History (Updated 06/24/23 @ 17:35 by Brynn Sadler APRN, MANAGER OF MARKETING) History of colonoscopy ?Z98.890 - Other specified postprocedural states (ICD-10) H/O adenoidectomy ?Z90.89 - Acquired absence of other organs (ICD-10) History of appendectomy ?Z90.49 - Acquired absence of other specified parts of digestive tract (ICD-10) History of tonsillectomy ?Z90.89 - Acquired absence of other organs (ICD-10) Hx of kidney removal ?Z90.5 - Acquired absence of kidney (ICD-10) Family History (Updated 06/24/23 @ 17:43 by Brynn Sadler APRN, MANAGER OF MARKETING) Mother Colon cancer Fibroids Paternal Grandmother Breast cancer Lung cancer Uterine cancer Maternal Grandmother Stroke High blood pressure Social History (Updated 06/24/23 @ 17:36 by Brynn Sadler, HASMUKH, MANAGER OF MARKETING) Narrative: . 2 children. Alcohol, socially. Non-smoker. No illicit drug uses. 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 - Exam Physical Exam: Vital signs: Temp Pulse Resp BP Pulse Ox O2 Del Method 97.3 F L 75 16 137/79 95 Room Air 07/01/23 09:21 07/01/23 09:21 07/01/23 09:21 07/01/23 09:21 07/01/23 09:21 07/01/23 09:21 Narrative: General: No acute distress Psych: Alert and oriented x 3, full affect HEENT: Normocephalic, atraumatic Heart: Regular rate and rhythm, no rubs murmurs or gallops Lungs: Clear to auscultation without wheezes, rales or crackles 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 See details above and in our Consult on 06/09. We reviewed the goal of planned procedure in obtaining tissue to hopefully exclude endometrial hyperplasia, atypia or carcinoma given her return of vaginal bleeding. Again reviewed risks in detail. Consent signed. We discussed postoperative restrictions and return precautions.
--- NOTE | 2023-07-01 09:41 | W.ANESCHARGE ---
Anesthesia Charges Start Date/Time Anesthesia Start Date: 07/01/23 Anesthesia Start Time: 08:29 Stop Date/Time Anesthesia Stop Date: 07/01/23 Anesthesia Stop Time: 09:25
[2023-07-01 09:45] VITALS: BP 132/79; PULSE 68; RESP 16; O2SAT 96
== END 2023-07-01 11:00 | disposition home or self-care (01) ==
PROVIDERS: PCP Nurse Practitioner Family; Visit Provider Obstetrics & Gynecology
PROC: 0UDB8ZZ Extraction of Endometrium, Via Natural or Artificial Opening Endoscopic (ICD-10-PCS; CPT 58558; principal; 2023-07-01 08:15)
DX: N93.8 Other specified abnormal uterine and vaginal bleeding (principal); Z12.4 Encounter for screening for malignant neoplasm of cervix
CPT/HCPCS: 58558; 00952; 36415; 81025; 82565; 85018; 88112; 88305; J1100; J1885; J2250; J2405; J2704; J3010; J3490; J7120; S0020

== ENCOUNTER 2023-08-01 11:25 | Outpatient (CLI) | payer OTHER, SELFPAY ==
--- NOTE | 2023-08-01 11:30 | CRLHL7_ITS ---
For Patients: As a result of the Century Cures Act, medical imaging exams and procedure reports are released immediately into your electronic medical record. You may view this report before your referring provider. If you have questions, please contact your health care provider. BILATERAL SCREENING MAMMOGRAM WITH COMPUTER-AIDED DETECTION AND TOMOSYNTHESIS TECHNIQUE: CC and MLO views were obtained. These mammographic images have been obtained using full-field digital technique. These mammographic images were interpreted with the benefit of computer-aided detection. Breast Tomosynthesis was used in this interpretation. COMPARISON FILM: 05/06/19, 06/11/14. FINDINGS: There are scattered areas of fibroglandular density IMPRESSION: There is no radiographic evidence for malignancy. ASSESSMENT: BI-RADS Category 1: Negative RECOMMENDATION: Routine screening mammogram in 1 year. A lay language report of this examination will be provided to the patient. Luiz Katz M.D. Diagnostic/Nuclear Medicine Radiologist [email or web address] IRENE/Dictated by: Luiz Katz MD @ 08/04/2023 8:21:00 AM (Electronically Signed)
== END 2023-08-01 11:26 | disposition home or self-care (01) ==
LOC: MAMMO 11:26
PROVIDERS: PCP Nurse Practitioner Family; Visit Provider Nurse Practitioner Family
DX: Z12.31 Encounter for screening mammogram for malignant neoplasm of breast (principal)
CPT/HCPCS: 77063; 77067

== ENCOUNTER 2024-04-19 13:08 | Outpatient (CLI) | payer OTHER, SELFPAY ==
--- OUTSIDE RECORDS SUMMARY | 2024-04-19 13:14 | XMS_ITS | Clinical Summary ---
Author Organization [facility] Address [place], [place] [address] Care Team Providers Care Personal Care Worker Name Role Phone Oriana Mckeon Unavailable Unavai jcarlosle Pcp, No Primary Care Provider Unavailabl e Allergies Active Allergy Reactions Criticality Noted Date Comments Amoxicillin Hives 12/09/2019 Medications Medication Sig Dispensed Refills Start Date End Date Status meclizine chewable (ANTIVERT) 25 mg tablet CHEW AND SWALLOW 1 TABLET BY MOUTH THREE TIMES DAILY NEEDED 06/18/2022 Active Active Problems Problem Noted Date Diagnosed Date Morbid obesity with BMI of 40.0-44.9, adult 02/07 Hx of unilateral nephrectomy 01/04/2015 Renal mass 08/26/2014 Resolved Problems Problem Noted Date Diagnosed Date Resolved Date No significant past medical history 10/10/2011 10/10/2011 Acute sinusitis, unspecified 10/10/2011 08/26/2014 Immunizations Name Administration Dates Next Due COVID-19 vaccine ([employer]NT[employer] 30mcg/0.3mL) P F, MDV 01/29/2021,01/08/2021 Tdap 01/25/2010,10/10/2009 Family History Medical History Relation Name Comments Diabetes Maternal Grandmother Hypertension Maternal Grandmother Stroke Maternal Grandmother Good Health Mother Cancer-colon Other maternal great uncle Cancer-breast No Family History Relation Name Status Comments Maternal Grandmother Mother Alive Other Social History Tobacco Use Types Packs/Day Years Used Date Smoking Tobacco: Never Smokeless Tobacco: Never Tobacco Cessation:Counseling Given: Yes Alcohol Use Standard Drinks/Week Comments Yes 0 (1 standard drink = 0.6 oz pur e alcohol) socially PHQ-2 Answer Date Recorded PHQ-2 TOTAL SCORE 0 05/26/2020 Social Connections Answer Date Recorded Frequency of Communication with Friends and Fami ly Not on file 09/08/2021 Financial Resource Strain Answer Date R ecorded Difficulty of Paying Living Expenses Not on file 09/08/2021 Difficulty of Paying Living Expenses Not on file 09/08/2021 Sex and Gender Information Value Date Recorded Sex Assigned at Not on file Gender Identity Not on file Sexual Orientation Not on file Obstetrics History Para Term AB IAB SAB Ectopic Multiple Livin g Live Births 2 2 0 0 0 0 0 0 0 2 Date Outcome GA Total Labor Labor/2nd/3rd Weight Sex Type Anes PTL Radha A1 A5 Name Clin Para Para Last Filed Vital Signs Vital Sign Reading Time Taken Comments Blood Pressure 154/98 06/27/2022 9:36 AM CDT Pulse 70 06/27/2022 9:36 AM CDT Temperature 36.7 ??C (98 ??F) 06/19/2021 3:35 PM CDT Respiratory Rate 18 12/22/2020 7:55 AM CDT Oxygen Saturation 100% 06/27/2022 9:36 AM CDT Inhaled Oxygen Concentration - - Weight 123.5 kg (272 lb 3.2 oz) 06/27/2022 9:36 AM CDT Height 157.5 cm (5' 2) 06/19/2021 3:35 PM CDT Body Mass Index 49.79 06/19/2021 3:35 PM CDT Plan of Treatment Health Maintenance Due Date Last Done Comments HIV for age 15-65 1989 Hepatitis C screening for age 18-79 02/23/1992 Colonoscopy through age 75 2019 Lipids for age 45-75 2019 Mammogram for age 45-75 2019 Tetanus booster 01/26/2020 01/25/2010, 10/2009, 10/10/2009 Depression screening for age 12+ 05/26/2021 05/26/2020, 06/25/2019, 11/13/2016 BMI (ht and wt on same day) for age 18+ 06/19/2022 06/19/2021, 02/26/2021, 12/19/2020, Additional history exists COVID-19 vaccine series (3 - season) 2023 01/29/2021, 01/08/2021 Zoster (shingles) series for age 50+ (1 of 2) 02/23/2024 Influenza for age 50-64 05/09/2024 Pap test for age 21-65 07/01/2028 , 07/01/2023, 11/13/2016, Additional history exists Tdap Completed 01/25/2010, 10/10/2009 Pneumococcal series for age 6-64 Aged Out No longer eligible based on patient's age to complete this topic Procedures Procedure Name Priority Date/Time Associated Diagnosis Comments HPV THIN PREP Routine 07/01/2023 12:00 PM CDT from Last 3 Months or Most Recently Relevant to Health Maintenance Results * HPV HIGH RISK (07/01/2023 12:00 PM CDT) TYPE 16 Negative Negative 07/03/2023 2:22 PM CDT [facility] TYPE 18 Negative Negative 07/03/2023 2:22 PM CDT [facility] OTHER HIGH RISK TYPES Negative Negative 07/03/2023 2:22 PM CDT [facility] Other (Cervical) 07/01/2023 12:00 PM CDT 07/02/2023 10:07 AM CDT Narrative [facility] - 07/03/2023 2:22 PM CDT HPV types 16, 18, 31, 33, 35, 39, 45, 51, 52, 56, 58, 59, 66 and 68 DNA were undetectable or below the pre-set threshold. Methodology: Obie May 4800 HPV Test Doctor Unknown MICROBIOLOGY [facility] [address] [place] [address], from Last 3 Months or Most Recently Relevant to Health Maintenance Care Teams Personal Care Worker Relationship Specialty Start Date End Date Pcp, No . PCP - General 06/27/22 Oriana Mckeon 12/02/06
== END 2024-04-19 13:09 | disposition home or self-care (01) ==
PROVIDERS: PCP Nurse Practitioner Family; Visit Provider Nurse Practitioner Family
DX: R03.0 Elevated blood-pressure reading, without diagnosis of hypertension (principal); N93.9 Abnormal uterine and vaginal bleeding, unspecified
CPT/HCPCS: 80048; 85025

== ENCOUNTER 2024-09-14 07:15 | Outpatient (CLI) | payer OTHER, SELFPAY ==
--- NOTE | 2024-09-14 07:15 | MR_ITS ---
[address] [address] Phone:?[phone] Fax:?[phone] Referring Physician Information: Li Garcia [address] [facility] [address] Phone:?[phone] Fax:?[phone] Patient:Ana Quezada D.O.B:?1975 Sex:?Female Phone:?[phone] [facility] MRN:?[id number] Exam Date:?09/14/2024 EXAM: MRI of the LEFT KNEE, without contrast CLINICAL: Female, 49 years old, with medial left knee pain. INDICATION: Evaluate for medial meniscus tear versus other knee internal derangement etiology. PRIOR SURGERY: None reported. PLAIN FILMS: 2023 radiographic series of the left knee. COMPARISONS: No prior MRIs available. TECHNICAL: Using a 1.5 Nia MR scanner and a localizing surface coil: 3.0 mm?sagittals: PD, PDFS 3.0 mm?coronals: PD, STIR 3.0 mm?axials: PD, T2FS SEDATION: None. CONTRAST: None. IMPRESSION: 1. Incomplete vertical radial tear of the medial meniscus posterior horn without complete extension through meniscus periphery, with associated mild peripheral meniscal extrusion. 2. No medial compartment chondromalacia/osteoarthritis or osseous reactive change. 3. 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 4. Large knee effusion. 5. No lateral meniscus tear. 6. No cruciate or collateral ligament injuries. FINDINGS: Knee joint: Effusion: Large knee effusion. Popliteal cyst: None. Loose bodies: None. Subcutaneous and extra-articular soft tissues: Unremarkable. Ligaments: ACL: Intact and normal. PCL: Intact and normal. MCL: Intact and normal. FCL: Intact and normal. Posterolateral corner: Intact popliteus, biceps femoris, iliotibial band, popliteofibular ligament and lateral gastrocnemius. Posteromedial corner: Intact pes anserinus and posterior oblique ligament. Extensor mechanism: Patellar tendon: Intact and normal. Quadriceps tendon: Intact and normal. Retinacula: Intact and normal. Fat pads: Unremarkable. Medial compartment: Medial meniscus: Incomplete vertical radial tear of the far posterior medial meniscus at a location approximately 10 mm medial to the posterior root tibial attachment extends towards, although not completely through, meniscus periphery (sagittal images 11-13; coronal images 20-21; axial series 4, image 20). Mild 2 mm peripheral meniscal extrusion (coronal image 18). Medial femoral condyle: No demonstrable chondromalacia. Medial tibial plateau: No demonstrable chondromalacia. Lateral compartment: Lateral meniscus: Intact and normal. Lateral femoral condyle: No demonstrable chondromalacia. Lateral tibial plateau: No demonstrable chondromalacia. Patellofemoral joint: Patella: Approximately 25 x 15 mm, SI by ML dimension grade III-IV and adjacent grade II chondromalacia and thinning/loss of the central patella is accompanied by slight underlying cortical irregularity and minimal slight subjacent marrow edema (axial images 7-14; sagittal images 21-15). Trochlea: Grade II-III chondromalacia of the medial rim of the femoral trochlea is accompanied by slight marginal osteophyte formation but without subjacent reactive marrow edema at this time. Proximal tibiofibular joint: Unremarkable. Bones: No other marrow edema or fractures. Neurovascular: Popliteal artery/vein: Normal. Anterior tibial artery: No aberrant variant. Tibial nerve: Normal. Popliteal nerve: Normal. Common peroneal nerve: Normal. [facility] Electronically signed on 09/14/2024 1:21:00 PM by Kendall Jorgensen M.D.
== END 2024-09-14 07:16 | disposition home or self-care (01) ==
LOC: MRI 07:16
PROVIDERS: PCP Nurse Practitioner Family; Visit Provider Physician Assistant Surgical
DX: M25.562 Pain in left knee (principal); S83.222A Peripheral tear of medial meniscus, current injury, left knee, initial encounter; M94.262 Chondromalacia, left knee; M25.462 Effusion, left knee; S89.92XA Unspecified injury of left lower leg, initial encounter
CPT/HCPCS: 73721

== ENCOUNTER 2024-10-05 06:05 | Emergency (ER) | payer OTHER, SELFPAY ==
[2024-10-05 06:07] VITALS: BP 152/89; PULSE 69; RESP 16; TEMP 34.9; O2SAT 99; BMI 44.3
--- NOTE | 2024-10-05 06:23 | ED.GENADULT ---
HPI - General Adult General Chief complaint: Dizziness/Vertigo Stated complaint: Vertigo Time Seen by Provider: 10/05/24 06:23 History of Present Illness HPI narrative: Pt reports not sleeping well last night around 0130 was dizzy, then severe dizziness around 0500 which woke her. Nauseous as well, sweaty when she woke at 0500 (soaked shirt). Headache off/on for a few days . 49-year-old woman presenting to the emergency department with concern of dizziness. Improves when she closes her eyes or just does not move. Been feeling not so well over the last couple of days. About 5 hours ago this [employer] hyperion consultant noted she was dizzy but it really escalated but an hour and a half ago. She is nauseated but has not vomited. No visual changes. Mild headache. Does have a history of dizziness. Peripheral in origin. Evaluated here in this emergency department in June of 2022 with similar complaints and CT imaging. History of dizziness more so exacerbated when she looks to the right she says. This time however it just seemed to be present with any movement of her head. Related Data Previous Rx's ?Medication ?Instructions ?Recorded diazepam 5 mg tablet (Valium) 5 mg PO TID PRN intense dizziness 10/05/24 #6 tabs meclizine 25 mg tablet 25 mg PO TID PRN dizziness #30 tabs 10/05/24 ondansetron 4 mg disintegrating 4 mg PO Q4-6H PRN nausea and 10/05/24 tablet vomiting #12 tabs Allergies Allergy/AdvReac Type Severity Reaction Status Date / Time amoxicillin Allergy Mild Rash Verified 09/16/24 10:41 Review of Systems Status of ROS: Reports: 6 or more systems reviewed and unremarkable except as noted in History and below [facility] Medical History Skin infection ?L08.9 - Local infection of the skin and subcutaneous tissue, unspecified (ICD-10) Elevated blood pressure reading in office without diagnosis of hypertension ?R03.0 - Elevated blood-pressure reading, without diagnosis of hypertension (ICD-10) Ankle swelling ?M25.473 - Effusion, unspecified ankle (ICD-10) No significant past medical history Surgical History History of colonoscopy ?Z98.890 - Other specified postprocedural states (ICD-10) H/O adenoidectomy ?Z90.89 - Acquired absence of other organs (ICD-10) History of appendectomy ?Z90.49 - Acquired absence of other specified parts of digestive tract (ICD-10) History of tonsillectomy ?Z90.89 - Acquired absence of other organs (ICD-10) Hx of kidney removal ?Z90.5 - Acquired absence of kidney (ICD-10) Family History Mother Colon cancer Fibroids Paternal Grandmother Breast cancer Lung cancer Uterine cancer Maternal Grandmother Stroke High blood pressure Social History Narrative: . 2 children. Alcohol, socially. Non-smoker. No illicit drug uses. Smoking Status: Never smoker How often do you have a drink containing alcohol: 2-4 times a month AUDIT-C Alcohol total score: 2 Non-prescribed substance use: denies use Are you using contraception or practicing any form of control: No Exam Narrative: Exam Narrative: Here with spouse and emesis bags. Looks like she does not feel very well. Prefers to keep her eyes closed. Pupils are 3 mm and equal and reactive to light and accommodation. Heart in regular rate and rhythm without murmur rub or gallop. Is distant however. Moving all extremities without difficulty. I do not appreciate nystagmus on extraocular movements which are full. Moving all extremities without difficulty. Const: Vital Signs, click to edit/add: Vital Signs - 24 hr 10/05/24 06:07 10/05/24 06:46 Temperature 94.9 F L Pulse Rate [Pulse Oximeter] 69 Respiratory Rate 16 Blood Pressure [Le ft Upper Arm] 152/89 H Pulse Oximetry 99 96 Oxygen Delivery Me thod Room Air Documenting provider has reviewed patient's vital signs: yes Course Vital Signs Vital signs: Initial Vital Signs Temperature 94.9 F L 10/05/24 06:07 Temperature Source Temporal Artery Scan 10/05/24 06:07 Pulse Rate 69 10/05/24 06:07 Respiratory Rate 16 10/05/24 06:07 Blood Pressure 152/89 H 10/05/24 06:07 Blood Pressure Mean 110 H 10/05/24 06:07 Blood Pressure Position Sitting 10/05/24 06:07 Pulse Oximetry 99 10/05/24 06:07 Oxygen Delivery Method Room Air 10/05/24 06:07 Vital Signs Temperature 94.9 F L 10/05/24 06:07 Pulse Rate 69 10/05/24 06:07 Respiratory Rate 16 10/05/24 06:07 Blood Pressure 152/89 H 10/05/24 06:07 Pulse Oximetry 99 10/05/24 06:07 Oxygen Delivery Method Room Air 10/05/24 06:07 Temperature 94.9 F L 10/05/24 06:07 Pulse Rate 69 10/05/24 06:07 Respiratory Rate 16 10/05/24 06:07 Blood Pressure 152/89 H 10/05/24 06:07 Pulse Oximetry 96 10/05/24 06:46 Oxygen Delivery Method Room Air 10/05/24 06:07 Medications Administered Medications: Discontinued Medications Generic Name Dose Route Start Last Admin Trade Name Freq PRN Reason Stop Dose Admin Diazepam 5 mg 10/05/24 06:30 10/05/24 06:40 Diazepam 5 Mg/Ml Inj IV 10/05/24 06:31 5 mg ONCE ONE Administration Diphenhydramine HCl 25 mg 10/05/24 07:59 10/05/24 08:07 Diphenhydramine 50 Mg/Ml Inj IVP 10/05/24 08:00 25 mg ONCE ONE Administration Sodium Chloride 1,000 mls @ 1,000 mls/hr 10/05/24 06:30 10/05/24 07:46 0.9 % Sodium Chloride 1000 Ml IV 10/05/24 07:29 Infused .Q1H ONE Infusion Ondansetron HCl 4 mg 10/05/24 06:30 10/05/24 06:42 Ondansetron 2 Mg/Ml Inj IVP 10/05/24 06:31 4 mg ONCE ONE Administration Medical Decision Making MDM Narrative Medical decision making narrative: Appears to have a history of peripheral vertigo and similar symptoms at this time. Differential certainly does include central ischemic process. They do note that some Magic medicine that she had gotten before and would appreciate similar. Looks like did after initially being given antihistamine, was given Ativan. I would usually test dose with Valium I think this is likely peripheral process. Will test with Valium and would be less likely resolve central process. Initiated on IV fluids, given Zofran and Valium. On reassessment is markedly improved. Slight dizziness remains with movement. Given further diphenhydramine. Little more sleepy in still with improved symptoms. When goes to sit can feel this again but overall improved enough that she would like to return home. See patient discharge plan for further discussion Stay well-hydrated. I am prescribing you some Valium (also known as diazepam), a benzodiazepine, that you received here. Otherwise also prescribing meclizine. Could try meclizine if dizziness returns in fact consider taking this regularly-dosed over the next 3-5 days if not too sedating. Could take Valium for breakthrough dizziness. Prescribing also Zofran for nausea. Take care in transitions. ECG Data Attestation: I personally reviewed and interpreted this ECG as follows: (normal sinus at 70) Discharge Plan Discharge Clinical Impression: Peripheral vertigo Patient Disposition: Home w/ Parent or Adult Condition: Improved Additional Instructions: Stay well-hydrated. I am prescribing you some Valium (also known as diazepam), a benzodiazepine, that you received here. Otherwise also prescribing meclizine. Could try meclizine if dizziness returns in fact consider taking this regularly-dosed over the next 3-5 days if not too sedating. Could take Valium for breakthrough dizziness. Prescribing also Zofran for nausea. Take care in transitions. Prescriptions: New diazepam [Valium] 5 mg tablet 5 mg PO TID PRN (Reason: intense dizziness) Qty: 6 0RF ondansetron 4 mg tablet,disintegrating 4 mg PO Q4-6H PRN (Reason: nausea and vomiting) Qty: 12 0RF meclizine 25 mg tablet 25 mg PO TID PRN (Reason: dizziness) Qty: 30 0RF Follow Up/Referrals: Brynn Sadler, CREW LEAD, ICE GUARD TESTER [Primary Care Provider] - Stand Alone Forms: iPointer Info Instructions
[2024-10-05] MEDS: diazePAM 5 MG/ML inj IV (06:40)
[2024-10-05] MEDS: ONDANSETRON 2 MG/ML inj 4 MG IVP (06:42)
[2024-10-05] MEDS: 0.9 % SODIUM CHLORIDE 1000 ml 1,000 ML IV (06:44)
[2024-10-05 06:46] VITALS: O2SAT 96
[2024-10-05] MEDS: diphenhydrAMINE 50 MG/ML inj 25 MG IVP (08:07)
== END 2024-10-05 09:14 | disposition home or self-care (01) ==
PROVIDERS: Emergency Provider Family Medicine; PCP Nurse Practitioner Family
DX: H81.399 Other peripheral vertigo, unspecified ear (principal)
CPT/HCPCS: 93005; 94761; 96361; 96374; 96375; 99284; J1200; J2405; J3360; J7030

== ENCOUNTER 2024-10-20 06:01 | Day surgery (SDC) | payer OTHER, SELFPAY ==
[2024-10-20] VITALS (13 sets, daily range): BP systolic 114–152; BP diastolic 69–94; PULSE 55–83; RESP 16; TEMP 36.3–36.9; O2SAT 97–100; BMI 47.5
--- OUTSIDE RECORDS SUMMARY | 2024-10-20 06:04 | XMS_ITS | Clinical Summary ---
Author Organization [facility] Address [place], [place] [address] Care Team Providers Care Sports Manager Name Role Phone Oriana Mckeon Unavailable Unavai lable Pcp, No Primary Care Provider Unavailabl e Allergies Active Allergy Reactions Criticality Noted Date Comments Amoxicillin Hives 12/09/2019 Medications meclizine chewable (ANTIVERT) 25 mg tablet CHEW [...] Name Administration Dates Next Due COVID-19 vaccine (Hilosoft 30mcg/0.3mL) P F, MDV 01/29/2021,01/08/2021 Tdap 01/25/2010,10/10/2009 [...] Paying Living Expenses Not on file 09/08/2021 Comments No Sex and Gender Information Value Date Recorded Sex Assigned at Not on file Legal Sex Female 5:23 AM [employer] OFFIC[employer] Gender Identity Not on file Sexual Orientation Not on file Obstetrics History Para Term AB IAB SAB Ectopic Multiple Livin g Live Births 2 2 0 0 0 0 0 0 0 2 Date Outcome GA Total Labor Labor//3rd Weight Sex Type Anes PTL Radha A1 A5 Name Clin Para Para Last Filed Vital Signs Vital Sign Reading Time Taken Comments Blood Pressure 154/98 06/27/2022 9:36 AM CDT Pulse 70 06/27/2022 9:36 AM CDT Temperature 36.7 C (98 F) 06/19/2021 3:35 PM CDT Respiratory Rate 18 [...] age 15-65 1989 Hepatitis C screening for ag e 18-79 02/23/1992 Colonoscopy through age 75 2019 Lipids for age 45-75 2019 Mammogram for age 45-75 2019 Tetanus booster 01/26/2020 01/25/2010, 10/2009, 10/10/2009 Depression screening for age 12+ 05/26/2021 05/26/2020, 06/25/2019, 11/13/2016 BMI (ht and wt on same day) for age 18+ 06/19/2022 06/19/2021, 02/26/2021, 12/19/2020, Additional history exists Pneumococcal series for age 50+ (1 of 1 - PCV) 02/23/2024 Zoster (shingles) series for age 50+ (1 of 2) 02/23/2024 COVID-19 vaccine series (3 - season) 2024 01/29/2021, 01/08/2021 Influenza for age 50-64 05/09/2024 Pap test for age 21-65 07/01/2028 , 07/01/2023, 11/13/2016, Additional history exists Tdap Completed 01/25/2010, 10/10/2009 Procedures Procedure Name Priority Date/Time Associated Diagnosis Comments HPV HIGH RISK Routine 07/01/2023 12:00 PM CDT from Last 3 Months or Most Recently Relevant to Health Maintenance Results * HPV HIGH RISK (07/01/2023 12:00 PM CDT) TYPE 16 Negative Negative 07/03/2023 2:22 PM CDT [facility] TYPE 18 Negative Negative 07/03/2023 2:22 PM CDT [facility] OTHER HIGH RISK TYPES Negative Negative 07/03/2023 2:22 PM CDT [facility] Other (Cervical) 07/01/2023 12:00 PM CDT 07/02/2023 10:07 AM CDT Narrative [facility] - 07/03/2023 2:22 PM CDT HPV types 16, 18, 31, 33, 35, 39, 45, 51, 52, 56, 58, 59, 66 and 68 DNA were undetectable or below the pre-set threshold. Methodology: Obie May 4800 HPV Test us Doctor Unknown MICROBIOLOGY Final Result [facility] [address] [place] [address], from Last 3 Months or Most Recently Relevant to Health Maintenance Insurance [employer] [id number] Care Teams Sports Manager Relationship Specialty Start Date End Date Pcp, No . PCP - General 06/27/22 Oriana Mckeon [birth year]
[2024-10-20] MEDS: LACTATED RINGERS 500 ML 500 ML 100 ML IV ×2 (06:50→07:57)
[2024-10-20] MEDS: SODIUM CHLORIDE 0.9 % (FLUSH) 10 ML SYRINGE IVF (06:50)
[2024-10-20] MEDS: CEFAZOLIN 1 GM inj 3 GM IVP (07:26)
[2024-10-20] MEDS: ROPIVACAINE 0.5% 30 ML 150 MG INJECTION (07:50)
--- NOTE | 2024-10-20 07:54 | W.PM.H&PU ---
History & Physical Update History & Physical Update H&P Reviewed and patient assessed: No changes noted
--- NOTE | 2024-10-20 08:04 | W.ANESCHARGE ---
Anesthesia Charges Start Date/Time Anesthesia Start Date: 10/20/24 Anesthesia Start Time: 07:11 Stop Date/Time Anesthesia Stop Date: 10/20/24 Anesthesia Stop Time: 08:06 Coding CPT Codes CPT Codes: ANESTH KNEE JOINT SURGERY - 93964 ([id number]) P3 - PATIENT W/SEVERE SYS DISEASE, QK - PHARMACY MESSENGER 2-4 CNCRNT ANES PROC, QX - HUNTING SALES ASSOCIATE SVC W/ MD MED DIRECTION
--- NOTE | 2024-10-20 08:22 | W.ANESCHARGE ---
Anesthesia Charges Start Date/Time Anesthesia Start Date: 10/20/24 Anesthesia Start Time: 07:11 Stop Date/Time Anesthesia Stop Date: 10/20/24 Anesthesia Stop Time: 08:06 Coding CPT Codes CPT Codes: ANESTH KNEE JOINT SURGERY - 84498 ([id number]) QK - VISITING TEACHER 2-4 CNCRNT ANES PROC, QX - SENIOR CLINICAL SAS PROGRAMMER SVC W/ MD MED DIRECTION, P3 - PATIENT W/SEVERE SYS DISEASE
--- NOTE | 2024-10-20 10:42 | SUR.PHASEII ---
0900: RN started to review d/c instructions with patient. Pt had a lot of questions regarding the surgery and what was actually done during surgery, and post op instructions. She states These are different than what was previously discussed. Updated Dr. Wolff- asked if he would come in to speak with pt regarding the surgery and post op instructions. Dr. Wolff in to see pt.
--- NOTE | 2024-10-20 11:20 | PM.ORPRC ---
Procedure Note Date of procedure: 10/20/24 Procedure: PREOPERATIVE DIAGNOSIS: 1. Left knee medial posterior horn meniscus tear 2. Morbid obesity-BMI 47.5 POSTOPERATIVE DIAGNOSIS: 1. Left knee medial posterior horn meniscus tear 2. 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 Morbid obesity-BMI 47.5 PROCEDURE: 1. Left knee arthroscopic partial medial meniscectomy SURGEON: Diego Wolff M.D. EMERGENCY COMMUNICATIONS DISPATCHER: Scot MCKEON. Of note, an litigation legal assistant was critical for this case to aid in patient positioning, knee manipulation, instrument exchange, and closure. ANESTHESIA: Spinal EBL: 2ml TOURNIQUET: 30 min at 300 torr COMPLICATIONS: None evident INDICATIONS: The patient is a pleasant 49-year-old female who has experienced left knee pain particularly with any twisting or turning. Physical exam was concerning for medial meniscus tear, this was confirmed on MRI. Additionally, attempted nonoperative management has been tried, and failed. Thus, surgery was recommended. FINDINGS: Complex tearing posterior horn medial meniscus approximately 1 cm from the posterior root. The posterior root was otherwise intact. The tear was primarily a radial type tear but did have some more complex extension in a oblique/horizontal manner as well as somewhat of a vertical component beyond that, she had grade 3-4 chondromalacia medial femoral condyle weight-bearing portion broadly. Also 4 chondromalacia patella median ridge more proximally. Extended to grade 2 and 3 chondromalacia more central and distal median ridge. Lateral meniscus was intact. ACL and PCL intact. No loose bodies evident otherwise. DESCRIPTION OF PROCEDURE: After a thorough discussion of risks, benefits, and alternatives, the patient was brought to the operating room and placed upon the operating table. Induction of anesthesia was undertaken as previously noted. 3 g IV Ancef was administered within 1 hr of incision preoperatively. Appropriate time-out was performed identifying proper patient, site, and procedure. The left lower extremity was prepped and draped in the appropriate sterile fashion using ChloraPrep. The limb was exsanguinated and tourniquet inflated. Anterolateral and anteromedial portals were established with an 11 blade, and a diagnostic arthroscopy was performed. This identified the findings as noted above. Following the diagnostic arthroscopy, a partial medial menisectomy was performed with the combination of basket forceps, apollo cautery, and a motorized shaver. Following this, the meniscus was re-probed and found to be stable. Approximately 10-15 % of the overall meniscus required resection. At this stage, the shaver was reinserted into the suprapatellar pouch and all remaining meniscal debris was evacuated. Instruments were removed, excess fluid was drained, and closure performed with 4-0 Monocryl with Steri-Strips. Dressings were applied, the tourniquet deflated, and the patient was awoken from anesthesia and transferred to the PACU in stable condition. PLAN: 1. Weightbear as tolerated operative extremity. Crutch / walker ambulation assistance PRN. Straight leg raise to be initiated starting tomorrow by the patient. 2. Ice, acetominophen and/or ibuprofen, and Oxycodone for pain as needed. 3. Knee range of motion and quad sets/straight leg raise regularly 4. Follow up with PA visit in 7-10 days. for a wound check. Initiate physical therapy at that time 5. Weight reduction has also been encouraged. I spent significant time counseling the patient in the postoperative time when she was more alert about how this will benefit her in the short term as well as long-term. She has tried over many years to help with weight reduction. She has talked many people. She is interested in a keto diet as well as a nutrition consultation. Perhaps we can help her make such a consultation.
== END 2024-10-20 10:30 | disposition home or self-care (01) ==
LOC: OR 06:02
PROVIDERS: PCP Nurse Practitioner Family; Visit Provider Orthopaedic Surgery Sports Medicine
PROC: (CPT 29870; principal; 2024-10-20 07:15)
DX: S83.232A Complex tear of medial meniscus, current injury, left knee, initial encounter (principal); M22.42 Chondromalacia patellae, left knee; E66.01 Morbid (severe) obesity due to excess calories; Z68.42 Body mass index [BMI] 45.0-49.9, adult
CPT/HCPCS: 29881; 01400; J0690; J1100; J2250; J2405; J2704; J2795; J3010; J3490; J7120

== ENCOUNTER 2024-11-15 10:15 | Outpatient (RCR) | payer OTHER, SELFPAY | END 2025-03-15 23:59 | disposition home or self-care (01) | PROVIDERS: PCP Nurse Practitioner Family; Visit Provider Physician Assistant Surgical | DX: Z48.89 Encounter for other specified surgical aftercare (principal); Z51.89 Encounter for other specified aftercare; Z87.828 Personal history of other (healed) physical injury and trauma; M25.562 Pain in left knee | CPT/HCPCS: 97110; 97162 ==